=== PATIENT | male | born 1965 | race African-American/Black ===

== ENCOUNTER 2017-07-07 09:25 | Emergency (ER) | payer SELFPAY ==
[~2017-07-07] VITALS: Ht 177.8 cm; Wt 97.5 kg
[~2017-07-07 09:25] MED LIST: BENZ100C PO
--- NOTE | 2017-07-07 09:44 | PHYS DOC ---
Past Medical History Past Medical History: Hypertension Past Surgical History: No Surgical History Alcohol Use: Sober Drug Use: None Adult General Chief Complaint Chief Complaint: SORE THROAT HPI HPI Patient is a 51 year old male with history of hypertension who presents with a sore throat and body aches for 2 days. Patient denies any fever. Review of Systems Review of Systems Constitutional: Reports body aches. Denies fever or chills [] Eyes: Denies change in visual acuity, redness, or eye pain [] HENT: Reports sore throat. Denies nasal congestion Respiratory: Denies cough or shortness of breath [] Cardiovascular: No additional information not addressed in HPI [] GI: Denies abdominal pain, nausea, vomiting, bloody stools or diarrhea [] : Denies dysuria or hematuria [] Musculoskeletal: Denies back pain or joint pain [] Integument: Denies rash or skin lesions [] Neurologic: Denies headache, focal weakness or sensory changes [] All other systems were reviewed and found to be within normal limits, except as documented in this note. Allergies Allergies Allergies Coded Allergies Type Severity Reaction Last Updated Verified No Known Drug Allergies 02/05/15 No Physical Exam Physical Exam Constitutional: Well developed, well nourished, no acute distress, non-toxic appearance. [] HENT: Normocephalic, atraumatic, bilateral external ears normal, oropharynx moist, no oral exudates, nose normal. [] posterior pharynx is mildly erythematosus worse on the left upper side Eyes: PERRLA, EOMI, conjunctiva normal, no discharge. [] Neck: Normal range of motion, no tenderness, supple, no stridor. [] Cardiovascular:Heart rate regular rhythm, no murmur [] Lungs & Thorax: Bilateral breath sounds clear to auscultation [] Abdomen: Bowel sounds normal, soft, no tenderness, no masses, no pulsatile masses. [] Skin: Warm, dry, no erythema, no rash. [] Back: No tenderness, no CVA tenderness. [] Extremities: No tenderness, no cyanosis, no clubbing, ROM intact, no edema. [] Neurologic: Alert and oriented X 3, normal motor function, normal sensory function, no focal deficits noted. [] Psychologic: Affect normal, judgement normal, mood normal. [] Current Patient Data Vital Signs Vital Signs Date Time Temp Pulse Resp B/P (MAP) Pulse Ox O2 Delivery O2 Flow Rate FiO2 07/07/17 09:40 98.5 61 16 97 Room Air 98.5 Lab Values Laboratory Tests Test 07/07/17 09:40 07/07/17 10:00 Influenza Type A Antigen Negative (NEGATIVE) Influenza Type B Antigen Negative (NEGATIVE) Group A Streptococcus Rapid Positive (NEGATIVE) EKG EKG [] Radiology/Procedures Radiology/Procedures [] Course & Med Decision Making Course & Med Decision Making Pertinent Labs and Imaging studies reviewed. (See chart for details) Patient has a sore throat and body aches for 2 days. Negative influenza A or B. Positive rapid strep. Discharged with amoxicillin for 10 days and lidocaine viscous. Tylenol or Motrin for pain or fever. Saltwater gargles also recommended. Follow-up with primary care doctor in one week. Dragon Disclaimer Dragon Disclaimer This electronic medical record was generated, in whole or in part, using a voice recognition dictation system. Departure Departure Impression: Primary Impression: Strep pharyngitis Disposition: HOME, SELF-CARE Condition: STABLE Referrals: NO PCP (PCP) Follow-up with your doctor at [facility] [place] on Wednesday Patient Instructions: Strep Throat, Group A Streptococcus Additional Instructions: You tested positive for strep infection. Take the prescribed antibiotics until completed. Take Tylenol/ Motrin for pain or fever. Follow-up with your doctor in one week. Scripts Amoxicillin (AMOXICILLIN) 875 Mg Tablet 1 TAB PO BID, #20 TAB Prov: GWYN MCNAMARA APRN 07/07/17 GWYN MCNAMARA APRN Jul 07, 2017 09:44
[2017-07-07 10:09] LABS: OBC FLU VALID
[2017-07-07 10:23] LABS: NEGATIVE OBC STREP NEG; POSITIVE OBC STREP POS
[2017-07-07] MEDS ORDERED: AMOX875T PO (10:33)
[2017-07-07 10:43] VITALS: BP 152/88
== END 2017-07-07 11:12 | disposition home or self-care (01) ==
LOC: ER 09:25
DX: J02.0 Streptococcal pharyngitis (principal); I10 Essential (primary) hypertension
CPT/HCPCS: 87804; 87880; 99284

== ENCOUNTER 2017-09-03 08:47 | Emergency (ER) | payer OTHER ==
[2017-09-03] MEDS: IBUPROFEN 800 MG TABLET. PO (09:43)
== END 2017-09-03 10:05 | disposition home or self-care (01) ==
LOC: ER 08:47
DX: Z76.0 Encounter for issue of repeat prescription (principal); I10 Essential (primary) hypertension
CPT/HCPCS: 99283

== ENCOUNTER 2017-10-11 12:59 | Emergency (ER) | payer OTHER ==
[2017-10-11 14:52] LABS: INFLUENZA A PATIENT NEGATIVE (NEGATIVE); INFLUENZA B PATIENT NEGATIVE (NEGATIVE); OBC FLU VALID
== END 2017-10-11 15:08 | disposition home or self-care (01) ==
LOC: ER 12:59
DX: J32.1 Chronic frontal sinusitis (principal); I10 Essential (primary) hypertension
CPT/HCPCS: 87804; 87804-59; 99284

== ENCOUNTER 2018-02-22 17:38 | Emergency (ER) | payer OTHER | END 2018-02-22 19:05 | disposition home or self-care (01) | LOC: ER 19:05 | DX: M25.511 Pain in right shoulder (principal); M79.1 Myalgia; I10 Essential (primary) hypertension | CPT/HCPCS: 99281 ==

== ENCOUNTER 2018-04-04 18:24 | Emergency (ER) | payer MEDICARE, OTHER ==
[~2018-04-04] VITALS: Ht 177.8 cm; Wt 95.3 kg
[~2018-04-04 18:24] MED LIST changes: +AMOX1TAB61 PO; +AMOX875T PO
[2018-04-04 19:19] VITALS: BP 164/101
[2018-04-04] MEDS ORDERED: LIDOCAINE 1% PF 30 ML VIAL. INJ ONE (19:30)
[2018-04-04] MEDS ORDERED: TETANUS AND DIPHTHERIA TOX/PF 0.5 ML DISP.SYRIN. VAX IM ONE (20:00)
--- NOTE | 2018-04-04 20:32 | PHYS DOC ---
Past Medical History Past Medical History: Hypertension Past Surgical History: No Surgical History Alcohol Use: Sober Drug Use: None Adult General Chief Complaint Chief Complaint: LACERATION/AVULSION HPI HPI Patient is a 52 year old male who presents with laceration to the left thumb and left wrist pain. Patient reports he was carrying a window when it slipped from his hand, lacerating his left thumb and causing him to fall on his left wrist. He is unsure of his last tetanus. Bleeding is controlled at this time. Review of Systems Review of Systems Constitutional: Denies fever or chills [] Musculoskeletal: Left wrist pain Integument: Laceration to left thumb Neurologic: Denies focal weakness or sensory changes [] All other systems were reviewed and found to be within normal limits, except as documented in this note. Current Medications Current Medications Current Medications Medications (Trade) Dose Ordered Sig/Ike Start Time Stop Time Status Last Admin Dose Admin Lidocaine HCl (Xylocaine 1% Pf 30ml Vial) 20 ml 1X ONCE 04/04/18 19:30 04/04/18 19:31 DC 04/04/18 19:45 20 ML Tetanus/ Diphtheria Toxoids (Tenivac Syringe) 0.5 ml ONCE ONCE 04/04/18 20:00 04/04/18 20:01 DC 04/04/18 20:30 0.5 ML Allergies Allergies Allergies Coded Allergies Type Severity Reaction Last Updated Verified No Known Drug Allergies 02/05/15 No Physical Exam Physical Exam Constitutional: Well developed, well nourished, no acute distress, non-toxic appearance. [] HENT: Normocephalic, atraumatic Eyes: PERRLA, EOMI, conjunctiva normal, no discharge. [] Neck: Normal range of motion, no tenderness, supple, no stridor. [] Skin: Warm, dry, 1.5 cm laceration to the left thumb, bleeding controlled Extremities: Tenderness to palpation of the left wrist, limited range of motion due to pain, no swelling Neurologic: Alert and oriented X 3, normal motor function, normal sensory function, no focal deficits noted. [] Psychologic: Affect normal, judgement normal, mood normal. [] Current Patient Data Vital Signs Vital Signs Date Time Temp Pulse Resp B/P (MAP) Pulse Ox O2 Delivery O2 Flow Rate FiO2 04/04/18 19:19 98.5 68 12 164/101 (122) 97 Room Air 98.5 EKG EKG [] Radiology/Procedures Radiology/Procedures [] Course & Med Decision Making Course & Med Decision Making Pertinent Labs and Imaging studies reviewed. (See chart for details) [] Dragon Disclaimer Dragon Disclaimer This electronic medical record was generated, in whole or in part, using a voice recognition dictation system. Laceration/Wound Repair Laceration/Wound Repair : Wound Location: upper extremity (left thumb) Wound's Depth, Shape: superficial, flap Wound Length (cm): 1 Wound Explored: clean Betadine Prep?: No Anesthesia: 1% Lidocaine Volume Anesthetic (ccs): 2 Wound Repaired With: sutures Suture Size/Type: 5:0 Number of Sutures: 3 Layer Closure?: No Sterile Dressing Applied?: Yes Splint Applied?: No Sling Applied?: No Progress Patient tolerated without difficulty Departure Departure Impression: Primary Impression: Laceration Additional Impression: Left wrist sprain Disposition: 01 HOME, SELF-CARE Condition: GOOD Referrals: NO PCP (PCP) Patient Instructions: Laceration Care, Adult, Wrist Sprain with Rehab-SportsMed Problem Qualifiers Additional Impression: Left wrist sprain Encounter type: initial encounter Qualified Codes: S63.502A - Unspecified sprain of left wrist, initial encounter [facility]ON [facility] [employer] Apr 04, 2018 20:32
--- NOTE | 2018-04-04 21:57 | RAD ---
Indication: Left wrist pain after fall TECHNIQUE: 3 views of the left wrist COMPARISON: None FINDINGS: No acute fracture or dislocation. No soft tissue abnormality. No arthritic changes. IMPRESSION: No acute findings. Electronically signed by: Tushar Siddiqui DO (04/04/2018 9:53 PM) [facility]
== END 2018-04-04 20:43 | disposition home or self-care (01) ==
LOC: ER 18:24
DX: S61.012A Laceration without foreign body of left thumb without damage to nail, initial encounter (principal); S63.502A Unspecified sprain of left wrist, initial encounter; I10 Essential (primary) hypertension; Y93.89 Activity, other specified; W26.8XXA Contact with other sharp object(s), not elsewhere classified, initial encounter; Y92.89 Other specified places as the place of occurrence of the external cause; Y99.8 Other external cause status
CPT/HCPCS: 12001; 29125; 73110; 90471; 90714; 99284-25

== ENCOUNTER 2018-12-31 06:57 | Emergency (ER) | payer OTHER ==
[~2018-12-31] VITALS: Ht 177.8 cm; Wt 97.5 kg
[2018-12-31] MEDS ORDERED: CYCLOBENZAPRINE 10 MG TABLET. PO ONE (07:30)
[2018-12-31] MEDS ORDERED: HYDROcodone/APAP 5/325MG 1 TAB TABLET PO ONE (07:30)
--- NOTE | 2018-12-31 08:09 | RAD ---
Examination: 2 views of the left shoulder and 3 views of the lumbar spine HISTORY: History of fall Comparison: None available FINDINGS: The humerus head is within the glenoid. Mild joint space loss identified in the glenohumeral joint and The calculated joint. There is no acute fracture or dislocation identified. The lumbar vertebral body heights are maintained. Mild intervertebral disc height loss identified in the lumbar spine likely degeneration. Facets are well aligned. IMPRESSION: 1. No acute osseous findings. Electronically signed by: Javier Gracia MD (12/31/2018 8:06 AM) [facility]
--- NOTE | 2018-12-31 08:09 | RAD ---
Examination: 2 views of the left shoulder and 3 views of the lumbar spine HISTORY: History of fall Comparison: None available FINDINGS: The humerus head is within the glenoid. Mild joint space loss identified in the glenohumeral joint and The calculated joint. There is no acute fracture or dislocation identified. The lumbar vertebral body heights are maintained. Mild intervertebral disc height loss identified in the lumbar spine likely degeneration. Facets are well aligned. IMPRESSION: 1. No acute osseous findings. Electronically signed by: Javier Gracia MD (12/31/2018 8:06 AM) [facility]
[2018-12-31] MEDS ORDERED: cloNIDine HCL 0.1 MG TABLET PO ONE (08:30)
--- NOTE | 2018-12-31 08:31 | PHYS DOC ---
Past Medical History Past Medical History: Hypertension Past Surgical History: No Surgical History Alcohol Use: Sober Drug Use: None Adult General Chief Complaint Chief Complaint: MECHANICAL FALL HPI HPI Patient is a 53 year old male who presents with complaining of left shoulder and low back pain after a fall. Patient states he lost his balance and had a fall from several stairs at home yesterday with slipping down along the stairs without loss of consciousness. Patient complaining of pain in left shoulder and low back as a constant pain that getting worse with movement. Patient denies focal neuro deficit, fever and chills, nausea and vomiting. Patient rated his pain 8/10 and denies taking any pain medication at home. Review of Systems Review of Systems Constitutional: Denies fever or chills [] Eyes: Denies change in visual acuity, redness, or eye pain [] HENT: Denies nasal congestion or sore throat [] Respiratory: Denies cough or shortness of breath [] Cardiovascular: No additional information not addressed in HPI [] GI: Denies abdominal pain, nausea, vomiting, bloody stools or diarrhea [] : Denies dysuria or hematuria [] Musculoskeletal: Reports pain and joint pain Integument: Denies rash or skin lesions [] Neurologic: Denies headache, focal weakness or sensory changes [] Endocrine: Denies polyuria or polydipsia [] All other systems were reviewed and found to be within normal limits, except as documented in this note. Current Medications Current Medications Current Medications Medications (Trade) Dose Ordered Sig/Ike Start Time Stop Time Status Last Admin Dose Admin Acetaminophen/ Hydrocodone Bitart (Lortab 5/325) 1 tab 1X ONCE 12/31/18 07:30 12/31/18 07:32 DC 12/31/18 07:38 1 TAB Clonidine HCl (Catapres) 0.2 mg 1X ONCE 12/31/18 08:30 12/31/18 08:31 DC 12/31/18 08:40 0.2 MG Cyclobenzaprine HCl (Flexeril) 10 mg 1X ONCE 12/31/18 07:30 12/31/18 07:32 DC 12/31/18 07:37 10 MG Allergies Allergies Allergies Coded Allergies Type Severity Reaction Last Updated Verified No Known Drug Allergies 02/05/15 No Physical Exam Physical Exam Constitutional: Well developed, well nourished,mild distress, non-toxic appearance. [] HENT: Normocephalic, atraumatic. Eyes: PERRLA, EOMI, conjunctiva normal, no discharge. [] Neck: Normal range of motion, no tenderness, supple, no stridor. [] Cardiovascular:Heart rate regular rhythm, no murmur [] Lungs & Thorax: Bilateral breath sounds clear to auscultation [] Skin: Warm, dry, no erythema, no rash. [] Back: No midline tenderness, no sign of injury, no CVA tenderness. [] Extremities: No shoulder deformity ,no tenderness, no cyanosis, no clubbing, ROM intact, no edema. [] Neurologic: Alert and oriented X 3, normal motor function, normal sensory function, no focal deficits noted. [] Psychologic: Affect normal, judgement normal, mood normal. [] Current Patient Data Vital Signs Vital Signs Date Time Temp Pulse Resp B/P (MAP) Pulse Ox O2 Delivery O2 Flow Rate FiO2 12/31/18 09:14 59 14 98 12/31/18 08:40 199/123 12/31/18 08:38 Room Air 12/31/18 07:18 98.0 98.0 EKG EKG [] Radiology/Procedures Radiology/Procedures [facility] [address] [place], [place] [id number] IMAGING REPORT Signed PATIENT: TASHIA NEWMAN ACCOUNT: [id number] : 1965 LOCATION: ER AGE: 53 SEX: M EXAM STATUS: REG ER ORD. PHYSICIAN: ESME MICHEL MD REASON: fall PROCEDURE: LUMBAR SPINE 2-3V Examination: 2 views of the left shoulder and 3 views of the lumbar spine HISTORY: History of fall Comparison: None available FINDINGS: The humerus head is within the glenoid. Mild joint space loss identified in the glenohumeral joint and The calculated joint. There is no acute fracture or dislocation identified. The lumbar vertebral body heights are maintained. Mild intervertebral disc height loss identified in the lumbar spine likely degeneration. Facets are well aligned. IMPRESSION: 1. No acute osseous findings. Electronically signed by: Javier Gracia MD (12/31/2018 8:06 AM) [facility] DICTATED and SIGNED BY: JAVIER GRACIA MD DATE: 12/31/18805 [facility] [address] [place] [address] IMAGING REPORT Signed PATIENT: TASHIA NEWMAN ACCOUNT: [id number] : 1965 LOCATION: ER AGE: 53 SEX: M EXAM STATUS: REG ER ORD. PHYSICIAN: ESME MICHEL MD REASON: fall PROCEDURE: SHOULDER 2+V LEFT Examination: 2 views of the left shoulder and 3 views of the lumbar spine HISTORY: History of fall Comparison: None available FINDINGS: The humerus head is within the glenoid. Mild joint space loss identified in the glenohumeral joint and The calculated joint. There is no acute fracture or dislocation identified. The lumbar vertebral body heights are maintained. Mild intervertebral disc height loss identified in the lumbar spine likely degeneration. Facets are well aligned. IMPRESSION: 1. No acute osseous findings. Electronically signed by: Javier Gracia MD (12/31/2018 8:06 AM) [facility] DICTATED and SIGNED BY: JAVIER GRACIA MD DATE: 12/31/18805 Course & Med Decision Making Course & Med Decision Making Pertinent Imaging studies reviewed. (See chart for details) Evaluation of patient in ER showed 53-year-old male patient with a fall yesterday and injury to lower back and shoulder without abnormal finding exam or x-ray. Patient treated with Osprey and Flexeril and felt better in ER. Patient had blood pressure of 130/123 at arrival to ER and states he does not take his blood pressure medication for months because he ran out of the medication and because of lack of insurance was not able to take medication. Patient treated with clonidine 0.2 mg by mouth with improvement of blood pressure. Prescription for lisinopril was given. I've spoken with the patient and/or caregivers. I've explained the patient's condition, diagnosis and treatment plan based on information available to me at this time. I've answered the patient's and/or caregivers questions and addressed any concerns. The patient and/or caregivers have a good understanding the patient's diagnosis, condition and treatment plan as can be expected at this point. Vital signs have been stabilized. The patient's condition is stable for discharge from the emergency department. The patient will pursue further outpatient evaluation with her primary care provider or other designated consulting physician as outlined in the discharge instructions. Patient and/or caregivers are agreeable to this plan of care and f ollow-up instructions have been explained in detail. The patient and/or caregivers have received these instructions in written format and expressed understanding of these discharge instructions. The patient and her caregivers are aware that if any significant change in condition or worsening of symptoms should prompt him to immediately return to this of the closest emergency depart ment. If an emergent department is not readily available I would encourage him to call 911. Dragon Disclaimer Dragon Disclaimer This electronic medical record was generated, in whole or in part, using a voice recognition dictation system. Departure Departure Impression: Primary Impression: Acute lumbosacral myofascial strain Additional Impressions: Strain of shoulder, left Fall down stairs Hypertensive urgency Disposition: HOME, SELF-CARE (ERASED) Condition: IMPROVED Referrals: NO PCP (PCP) Patient Instructions: Fall Prevention and Home Safety, How to Take Your Blood Pressure, [id number], Lumbosacral Strain, Managing Your High Blood Pressure, Shoulder Sprain Additional Instructions: Apply ice on the affected area Follow-up with your primary care physician in 3-5 days Return to ER if not getting better Scripts Lisinopril (LISINOPRIL) 20 Mg Tablet 1 TAB PO DAILY, #30 TAB 0 Refills Prov: ESME MICHEL MD 12/31/18 Tramadol Hcl (ULTRAM) 50 Mg Tablet 50 MG PO Q6HRS PRN for PAIN, #14 TAB 0 Refills Prov: ESME MICHEL MD 12/31/18 Naproxen (NAPROSYN) 500 Mg Tablet 1 TAB PO BID for pain, #20 TAB Prov: ESME MICHEL MD 12/31/18 Cyclobenzaprine Hcl (CYCLOBENZAPRINE HCL) 10 Mg Tablet 1 TAB PO TID for muscle pain, #30 TAB Prov: ESME MICHEL MD 12/31/18 Problem Qualifiers Primary Impression: Acute lumbosacral myofascial strain Encounter type: initial encounter Qualified Codes: S39.012A - Strain of muscle, fascia and tendon of lower back, initial encounter Additional Impressions: Strain of shoulder, left Encounter type: initial encounter Qualified Codes: S46.912A - Strain of unspecified muscle, fascia and tendon at shoulder and upper arm level, left arm, initial encounter Fall down stairs Encounter type: initial encounter Qualified Codes: W10.8XXA - Fall (on) (from) other stairs and steps, initial encounter ESME MICHEL MD December 31, 2018 08:31
[2018-12-31] MEDS ORDERED: TRAM-48 PO (08:58)
[2018-12-31] MEDS ORDERED: LISI-334 PO (08:58)
[2018-12-31] MEDS ORDERED: NAPR-683 PO (08:58)
[2018-12-31] MEDS ORDERED: CYCL10TA2 PO (08:58)
[2018-12-31 09:14] VITALS: BP 179/102
== END 2018-12-31 09:20 | disposition home or self-care (01) ==
LOC: ER 06:57
DX: S39.012A Strain of muscle, fascia and tendon of lower back, initial encounter (principal); S46.812A Strain of other muscles, fascia and tendons at shoulder and upper arm level, left arm, initial encounter; I16.0 Hypertensive urgency; W10.8XXA Fall (on) (from) other stairs and steps, initial encounter; Y93.89 Activity, other specified; Y92.89 Other specified places as the place of occurrence of the external cause; Y99.8 Other external cause status
CPT/HCPCS: 72100; 73030; 99284

== ENCOUNTER 2019-05-22 09:02 | Emergency (ER) | payer SELFPAY ==
[~2019-05-22] VITALS: Ht 177.8 cm; Wt 99.8 kg
[~2019-05-22 09:02] MED LIST changes: +CYCL10TA2 PO; +LISI-334 PO; +NAPR-683 PO; +TRAM-48 PO
[2019-05-22 09:10] VITALS: BP 196/116
--- NOTE | 2019-05-22 09:31 | PHYS DOC ---
Past Medical History Past Medical History: Hypertension Past Surgical History: No Surgical History Alcohol Use: Sober Drug Use: None Adult General Chief Complaint Chief Complaint: SORE THROAT HPI HPI Patient is a 53 year old AA male who presents to the ER with complaints of a sore throat, frequent throat clearing, and nasal congestion for the last 5 days. He denies any difficulty swallowing, shortness of breath, headache, wheezing, fever, rash, nausea, vomiting, diarrhea, abdominal pain, chest pain, numbness, tingling, weakness, or neck pain. Pt states he has a hx of hypertension but has been out of his meds for the last week. Pt is unsure of what the name of his medication is, it was prescribed by [facility], he has been prescribed blood pressure meds here before that also helped to control his hypertension. Pt currently rates his pain a 7/10 on the pain scale there are no alleviating factors the pain increases when swallowing. Review of Systems Review of Systems Constitutional: Denies fever or chills [] Eyes: Denies change in visual acuity, redness, or eye pain [] HENT: Denies ear pain or runny nose, see HPI Respiratory: Denies cough or shortness of breath [] Cardiovascular: No additional information not addressed in HPI [] GI: Denies abdominal pain, nausea, vomiting, or diarrhea [] : Denies dysuria or hematuria [] Musculoskeletal: Denies back pain or joint pain [] Integument: Denies rash or skin lesions [] Neurologic: Denies headache, focal weakness or sensory changes [] Complete systems were reviewed and found to be within normal limits, except as documented in this note. Allergies Allergies Allergies Coded Allergies Type Severity Reaction Last Updated Verified No Known Drug Allergies 02/05/15 No Physical Exam Physical Exam Constitutional: Well developed, well nourished, no acute distress, non-toxic appearance. [] HENT: Normocephalic, atraumatic, bilateral external ears normal, mild erythema of posterior pharynx, 1+ edema of B tonsils, oropharynx moist, no oral exudates, nose normal, odor of strep noted on breath. [] Eyes: PERRLA, EOMI, conjunctiva normal, no discharge. [] Neck: Normal range of motion, no tenderness, supple, no stridor. [] Cardiovascular:Heart rate regular rhythm, no murmur [] Lungs & Thorax: Bilateral breath sounds clear to auscultation [] Skin: Warm, dry, no erythema, no rash. [] Back: No tenderness, Extremities: No t cyanosis, ROM intact, no edema. [] Neurologic: Alert and oriented X 3, no focal deficits noted. [] Psychologic: Affect normal, judgement normal, mood normal. [] Current Patient Data Vital Signs Vital Signs Date Time Temp Pulse Resp B/P (MAP) Pulse Ox O2 Delivery O2 Flow Rate FiO2 05/22/19 09:10 98.2 77 19 196/116 (142) 98 Room Air 98.2 EKG EKG [] Radiology/Procedures Radiology/Procedures [] Course & Med Decision Making Course & Med Decision Making Pertinent Labs and Imaging studies reviewed. (See chart for details) [] Dragon Disclaimer Dragon Disclaimer This electronic medical record was generated, in whole or in part, using a voice recognition dictation system. Departure Departure Impression: Primary Impression: Strep pharyngitis Additional Impression: HTN (hypertension) Disposition: HOME, SELF-CARE Condition: STABLE Referrals: NO PCP (PCP) Patient Instructions: Hypertension, [id number], Strep Throat, [id number] Additional Instructions: Fill prescriptions and use as directed. Recommend warm salt water gargles as needed for relief of discomfort. Alternate Tylenol and ibuprofen as needed for fever/pain. Discard your toothbrush tomorrow and begin using a new toothbrush. Follow-up with primary care doctor at [facility] this week for evaluation of your hypertension. Return to the ER if symptoms worsen. Scripts Amoxicillin (AMOXICILLIN) 500 Mg Capsule 1 CAP PO BID, #20 CAP 0 Refills Prov: CM HAYS APRN 05/22/19 Lisinopril (LISINOPRIL) 20 Mg Tablet 1 TAB PO DAILY for 30 Days, #30 TAB 0 Refills Prov: CM HAYS APRN 05/22/19 Problem Qualifiers Additional Impression: HTN (hypertension) Hypertension type: essential hypertension Qualified Codes: I10 - Essential (primary) hypertension CM HAYS APRN May 22, 2019 09:31
[2019-05-22] MEDS ORDERED: LISI-334 PO (09:49)
[2019-05-22] MEDS ORDERED: AMOX500C PO (09:49)
== END 2019-05-22 10:10 | disposition home or self-care (01) ==
LOC: ER 09:02
DX: J02.0 Streptococcal pharyngitis (principal); B95.5 Unspecified streptococcus as the cause of diseases classified elsewhere; I10 Essential (primary) hypertension
CPT/HCPCS: 87880; 99283

== ENCOUNTER 2019-08-20 14:19 | Emergency (ER) | payer SELFPAY ==
[~2019-08-20] VITALS: Ht 177.8 cm; Wt 99.8 kg
[~2019-08-20 14:19] MED LIST changes: +AMOX500C PO
[2019-08-20 14:51] LABS: BASO % 0 % (0-3); EOS # 0.1 x10^3/uL (0.0-0.7); EOS % 2 % (0-3); HEMATOCRIT 48.5 % (39.0-53.0); HEMOGLOBIN 16.2 g/dL (13.0-17.5); LYMPH # 3.3 x10^3/uL (1.0-4.8); LYMPH % 52 % (24-48); MEAN CORPUSCULAR HEMOGLOBIN 29 pg (25-35); MEAN CORPUSCULAR HGB CONC 33 g/dL (31-37); MEAN CORPUSCULAR VOLUME 88 fL (79-100); MONO # 0.4 x10^3/uL (0.0-1.1); MONO % 7 % (0-9); NEUT # 2.4 x10^3/uL (1.8-7.7); NEUT % 39 % (31-73); PLATELET COUNT 226 x10^3/uL (140-400); RED CELL DISTRIBUTION WIDTH 14.7 % (11.5-14.5); WHITE BLOOD COUNT 6.3 x10^3/uL (4.0-11.0)
--- NOTE | 2019-08-20 14:57 | PHYS DOC ---
Past Medical History Past Medical History: Hypertension Past Surgical History: No Surgical History Alcohol Use: Sober Drug Use: None Adult General Chief Complaint Chief Complaint: CHEST PAIN-CARDIAC NATURE HPI HPI Patient is a 53 year old with history of hypertension who presents with complaint of chest pain. Patient states he woke up yesterday at 5 AM because of left lower chest pain as a stabbing and sharp pain with radiation to his back and associated with diaphoresis, shortness of breath, dizziness, palpitation. Patient rated his pain 10 over 10 and stated the pain resolved after 15 minutes with rest. Patient states he woke up 1330 today with the same pain that getting worse with movement of his left arm. Patient states his left hand had edema and numbness yesterday and he thought he slept wrong on his arm. Review of Systems Review of Systems Constitutional: Denies fever or chills [] Eyes: Denies change in visual acuity, redness, or eye pain [] HENT: Denies nasal congestion or sore throat [] Respiratory: Denies cough or shortness of breath [] Cardiovascular: No additional information not addressed in HPI [] GI: Denies abdominal pain, nausea, vomiting, bloody stools or diarrhea [] : Denies dysuria or hematuria [] Musculoskeletal: Denies back pain or joint pain [] Integument: Denies rash or skin lesions [] Neurologic: Denies headache, focal weakness or sensory changes [] Endocrine: Denies polyuria or polydipsia [] All other systems were reviewed and found to be within normal limits, except as documented in this note. Current Medications Current Medications Current Medications Medications (Trade) Dose Ordered Sig/[facility] Start Time Stop Time Status Last Admin Dose Admin Aspirin (Children'S Aspirin) 324 mg 1X ONCE 08/20/19 15:15 08/20/19 15:16 DC 08/20/19 14:56 324 MG Sodium Chloride 1,000 ml @ 1,000 mls/hr 1X ONCE 08/20/19 15:30 08/20/19 16:29 08/20/19 15:47 1,000 MLS/HR Allergies Allergies Allergies Coded Allergies Type Severity Reaction Last Updated Verified No Known Drug Allergies 02/05/15 No Physical Exam Physical Exam Constitutional: Well developed, well nourished, no acute distress, non-toxic appearance. [] HENT: Normocephalic, atraumatic, bilateral external ears normal, oropharynx moist, no oral exudates, nose normal. [] Eyes: PERRLA, EOMI, conjunctiva normal, no discharge. [] Neck: Normal range of motion, no tenderness, supple, no stridor. [] Cardiovascular:Heart rate regular rhythm, no murmur [] Lungs & Thorax: Bilateral breath sounds clear to auscultation , reproducible chest wall pain[] Abdomen: Bowel sounds normal, soft, no tenderness, no masses, no pulsatile masses. [] Skin: Warm, dry, no erythema, no rash. [] Back: No tenderness, no CVA tenderness. [] Extremities: No tenderness, no cyanosis, no clubbing, ROM intact, no edema. [] Neurologic: Alert and oriented X 3, normal motor function, normal sensory function, no focal deficits noted. [] Psychologic: Affect normal, judgement normal, mood normal. [] Current Patient Data Vital Signs Vital Signs Date Time Temp Pulse Resp B/P (MAP) Pulse Ox O2 Delivery O2 Flow Rate FiO2 08/20/19 14:28 97.9 54 14 153/87 (109) 98 Room Air 97.9 Lab Values Laboratory Tests Test 08/20/19 14:28 White Blood Count 6.3 x10^3/uL (4.0-11.0) Red Blood Count 5.50 x10^6/uL (4.30-5.70) Hemoglobin 16.2 g/dL (13.0-17.5) Hematocrit 48.5 % (39.0-53.0) Mean Corpuscular Volume 88 fL (79-100) Mean Corpuscular Hemoglobin 29 pg (25-35) Mean Corpuscular Hemoglobin Concent 33 g/dL (31-37) Red Cell Distribution Width 14.7 % (11.5-14.5) H Platelet Count 226 x10^3/uL (140-400) Neutrophils (%) (Auto) 39 % (31-73) Lymphocytes (%) (Auto) 52 % (24-48) H Monocytes (%) (Auto) 7 % (0-9) Eosinophils (%) (Auto) 2 % (0-3) Basophils (%) (Auto) 0 % (0-3) Neutrophils # (Auto) 2.4 x10^3/uL (1.8-7.7) Lymphocytes # (Auto) 3.3 x10^3/uL (1.0-4.8) Monocytes # (Auto) 0.4 x10^3/uL (0.0-1.1) Eosinophils # (Auto) 0.1 x10^3/uL (0.0-0.7) Basophils # (Auto) 0.0 x10^3/uL (0.0-0.2) Prothrombin Time 12.4 SEC (11.7-14.0) Prothrombin Time INR 1.0 (0.8-1.1) Sodium Level 141 mmol/L (136-145) Potassium Level 4.2 mmol/L (3.5-5.1) Chloride Level 104 mmol/L (98-107) Carbon Dioxide Level 31 mmol/L (21-32) Anion Gap 6 (6-14) Blood Urea Nitrogen 15 mg/dL (8-26) Creatinine 1.4 mg/dL (0.7-1.3) H Estimated GFR (Cockcroft-Gault) 63.9 BUN/Creatinine Ratio 11 (6-20) Glucose Level 93 mg/dL (70-99) Calcium Level 8.8 mg/dL (8.5-10.1) Magnesium Level 2.3 mg/dL (1.8-2.4) Total Bilirubin 0.7 mg/dL (0.2-1.0) Aspartate Amino Transferase (AST) 23 U/L (15-37) Alanine Aminotransferase (ALT) 23 U/L (16-63) Alkaline Phosphatase 65 U/L (46-116) Creatine Kinase 675 U/L (39-308) H Troponin I Quantitative < 0.017 ng/mL (0.000-0.055) YP-Bhl-M-Type Natriuretic Peptide 182 pg/mL (0-124) H Total Protein 7.9 g/dL (6.4-8.2) Albumin 3.8 g/dL (3.4-5.0) Albumin/Globulin Ratio 0.9 (1.0-1.7) L Lipase 152 U/L (73-393) Laboratory Tests 08/20/19 14:28 Laboratory Tests 08/20/19 14:28 EKG EKG EKG interpreted by me. EKG at 1426 showed sinus bradycardia at rate of 59, PVCs, no acute ST and T-wave elevation. Radiology/Procedures Radiology/Procedures [][facility] [address] [place], [place] [id number] IMAGING REPORT Signed PATIENT: TASHIA NEWMAN ACCOUNT: [id number] : 1965 LOCATION: ER AGE: 53 SEX: M EXAM STATUS: PRE ER ORD. PHYSICIAN: ESME MICHEL MD REASON: chest pain PROCEDURE: CHEST PA & LATERAL EXAM: Chest, 2 views. HISTORY: Chest pain. COMPARISON: 06/05/2016 FINDINGS: 2 views of the chest are obtained. There is no infiltrate, pleural effusion or pneumothorax. There is a stable prominent cardiac silhouette. There are calcified granulomas. IMPRESSION: No acute pulmonary finding. Electronically signed by: Jenni Vo MD (08/20/2019 3:22 PM) [facility] [place] DICTATED and SIGNED BY: JENNI VO MD DATE: 08/20/19 1522 Course & Med Decision Making Course & Med Decision Making Pertinent Labs and Imaging studies reviewed. (See chart for details) Evaluation of patient in ER showed 53-year-old male patient with heart score of 4 with complaining of 2 episodes of chest pain since yesterday. Patient had heavy physical job and labs showed elevation of CPK and currently. Patient did not have chest pain in ER but had reproducible chest wall pain. Patient treated with IV fluid and was advised to increase fluid intake. I've spoken with the patient and/or caregivers. I've explained the patient's condition, diagnosis and treatment plan based on information available to me at this time. I've answered the patient's and/or caregivers questions and addressed any concerns. The patient and/or caregivers have a good understanding the patient's diagnosis, condition and treatment plan as can be expected at this point. Vital signs have been stabilized. The patient's condition is stable for discharge from the emergency department. The patient will pursue further outpatient evaluation with her primary care provider or other designated consulting physician as outlined in the discharge instructions. Patient and/or caregivers are agreeable to this plan of care and follow-up instructions have been explained in detail. The patient and/or ca regivers have received these instructions in written format and expressed understanding of these discharge instructions. The patient and her caregivers are aware that if any significant change in condition or worsening of symptoms should prompt him to immediately return to this of the closest emergency department. If an emergent department is not readily available I would encourage him to call 911. [place] Disclaimer Dragon Disclaimer This electronic medical record was generated, in whole or in part, using a voice recognition dictation system. Departure Departure Impression: Primary Impression: Rhabdomyolysis Additional Impressions: Chest wall pain Renal insufficiency Disposition: HOME, SELF-CARE (@1602) Condition: IMPROVED Referrals: NO PCP (PCP) Patient Instructions: Chest Wall Pain, Rhabdomyolysis Additional Instructions: Drink plenty of liquids Follow-up with your primary care physician in 2-3 days Return to ER if not getting better The HEART Score for CP Pts HEART Score for Chest Pain: HEART Score for Chest Pain Response (Comments) Value History Moderately Suspicious 1 ECG Nonspecific Repolarizatio 1 Age >45 - < 65 1 Risk Factors 1 or 2 Risk Factors 1 Troponin < Normal Limit 0 Total 4 Risk Factors: Risk Factors: DM, Current or recent (<one month) smoker, HTN, HLP, family history of CAD, obesity. Risk Scores: Score 0 - 3: 2.5% MACE over next 6 weeks - Discharge Home Score 4 - 6: 20.3% MACE over next 6 weeks - Admit for Clinical Observation Score 7 - 10: 72.7% MACE over next 6 weeks - Early Invasive Strategies Problem Qualifiers Primary Impression: Rhabdomyolysis Rhabdomyolysis type: non-traumatic Qualified Codes: M62.82 - Rhabdomyolysis ESME MICHEL MD Aug 20, 2019 14:57
[2019-08-20 14:58] LABS: PROTHROMBIN TIME PATIENT 12.4 SEC (11.7-14.0)
[2019-08-20 15:07] LABS: CALCIUM 8.8 mg/dL (8.5-10.1); CREATININE 1.4 mg/dL (0.7-1.3); GFR 63.9; POTASSIUM 4.2 mmol/L (3.5-5.1)
[2019-08-20 15:15] LABS: ALBUMIN 3.8 g/dL (3.4-5.0); ALBUMIN/GLOBULIN RATIO 0.9 (1.0-1.7); MAGNESIUM 2.3 mg/dL (1.8-2.4); TOTAL BILIRUBIN 0.7 mg/dL (0.2-1.0); TOTAL PROTEIN 7.9 g/dL (6.4-8.2)
[2019-08-20] MEDS ORDERED: ASPIRIN CHEWABLE 81 MG TABLET. PO ONE (15:15)
--- NOTE | 2019-08-20 15:25 | RAD ---
EXAM: Chest, 2 views. HISTORY: Chest pain. COMPARISON: 06/05/2016 FINDINGS: 2 views of the chest are obtained. There is no infiltrate, pleural effusion or pneumothorax. There is a stable prominent cardiac silhouette. There are calcified granulomas. IMPRESSION: No acute pulmonary finding. Electronically signed by: Jenni Sim MD (08/20/2019 3:22 PM) [facility] [place]
[2019-08-20] MEDS ORDERED: IV NORMAL SALINE 1000ML BAG 1,000 ML IV ONE (15:30)
[2019-08-20 16:24] VITALS: BP 151/92
--- NOTE | 2019-08-21 08:45 | EKG ---
[facility] [address] [place] [address] Test Date: 2019-08-20 Test Time: 14:26:55 Pat Name: TASHIA NEWMAN Department: Room: Gender: Education Liaison: : 1965 Requested By: ESME MICHEL Order Number: [id number] Reading MD: Measurements Intervals [place] Rate: 58 P: 31 CA: 178 QRS: 10 QRSD: 96 T: 39 QT: 404 QTc: 400 Interpretive Statements SINUS RHYTHM VENTRICULAR PREMATURE COMPLEX(ES) ABNORMAL ECG No previous ECG available for comparison
== END 2019-08-20 16:32 | disposition home or self-care (01) ==
LOC: ER 14:19
DX: M62.82 Rhabdomyolysis (principal); R07.89 Other chest pain; N28.9 Disorder of kidney and ureter, unspecified; R42 Dizziness and giddiness; R60.9 Edema, unspecified; R00.2 Palpitations; R61 Generalized hyperhidrosis; I10 Essential (primary) hypertension; Z79.82 Long term (current) use of aspirin
CPT/HCPCS: 36415; 71046; 80053; 82550; 83690; 83735; 83880; 84484; 85025; 85610; 93005; 96360; 99285; J7030

== ENCOUNTER 2019-09-09 12:49 | Emergency (ER) | payer SELFPAY ==
[~2019-09-09] VITALS: Ht 177.8 cm; Wt 102.0 kg
[2019-09-09] MEDS ORDERED: IV NORMAL SALINE 1000ML BAG 1,000 ML IV SCH (13:37)
[2019-09-09 13:56] LABS: BILIRUBIN,URINE NEGATIVE (NEG); CLARITY,URINE CLEAR; COLOR,URINE YELLOW; NITRITE,URINE NEGATIVE (NEG); PH,URINE 5.5; PROTEIN,URINE NEGATIVE (NEG-TRACE); UROBILINOGEN,URINE 0.2 mg/dL (0.2 mg/dL)
[2019-09-09 14:03] LABS: BARBITURATES NEG (NEG); BENZODIAZEPINES NEG (NEG); CANNABINOIDS NEG (NEG); COCAINE NEG (NEG); METHADONE NEG (NEG); OPIATES NEG (NEG); PHENCYCLIDINE NEG (NEG)
[2019-09-09 14:04] LABS: AMPHETAMINE/METHAMPHETAMINE NEG (NEG)
--- NOTE | 2019-09-09 14:04 | PHYS DOC ---
Past Medical History Past Medical History: Hypertension Past Surgical History: No Surgical History Alcohol Use: Sober Drug Use: None Adult General Chief Complaint Chief Complaint: ABDOMINAL PAIN HPI HPI Patient is a 54 year old male with history of hypertension who presents with complaints of abdominal pain. Patient complaining of intermittent episodes of abdominal pain that started from suprapubic area and radiated to umbilical area for the last 4 days as a sharp pain that last for a few seconds and repeated every few minutes. Patient denies nausea, vomiting, diarrhea and constipation, urinary symptoms, fever and chills, history of the same pain. Patient complaining of anorexia. Patient states he missed his job since his pain was started and needs release to work. Review of Systems Review of Systems Constitutional: Denies fever or chills [] Eyes: Denies change in visual acuity, redness, or eye pain [] HENT: Denies nasal congestion or sore throat [] Respiratory: Denies cough or shortness of breath [] Cardiovascular: No additional information not addressed in HPI [] GI: Reports abdominal pain, denies nausea, vomiting, bloody stools or diarrhea [] : Denies dysuria or hematuria [] Musculoskeletal: Denies back pain or joint pain [] Integument: Denies rash or skin lesions [] Neurologic: Denies headache, focal weakness or sensory changes [] Endocrine: Denies polyuria or polydipsia [] All other systems were reviewed and found to be within normal limits, except as documented in this note. Current Medications Current Medications Current Medications Medications (Trade) Dose Ordered Sig/Ike Start Time Stop Time Status Last Admin Dose Admin Sodium Chloride 1,000 ml @ 1,000 mls/hr Q1H 09/09/19 13:37 09/09/19 14:36 DC 09/09/19 14:09 1,000 MLS/HR Allergies Allergies Allergies Coded Allergies Type Severity Reaction Last Updated Verified No Known Drug Allergies 02/05/15 No Physical Exam Physical Exam Constitutional: Well developed, well nourished, mild distress, non-toxic appearance. [] HENT: Normocephalic, atraumatic. Eyes: PERRLA, EOMI, conjunctiva normal, no discharge. [] Neck: Normal range of motion, no tenderness, supple, no stridor. [] Cardiovascular:Heart rate regular rhythm, no murmur [] Lungs & Thorax: Bilateral breath sounds clear to auscultation [] Abdomen: Bowel sounds normal, soft, no tenderness, no masses, no pulsatile masses. [] Skin: Warm, dry, no erythema, no rash. [] Back: No tenderness, no CVA tenderness. [] Extremities: No tenderness, no cyanosis, no clubbing, ROM intact, no edema. [] Neurologic: Alert and oriented X 3, no focal deficits noted. [] Psychologic: Affect anxious, judgement normal, mood normal. [] Current Patient Data Vital Signs Vital Signs Date Time Temp Pulse Resp B/P (MAP) Pulse Ox O2 Delivery O2 Flow Rate FiO2 09/09/19 14:54 67 159/87 (111) 98 Room Air 09/09/19 14:21 18 09/09/19 13:10 98.1 98.1 Lab Values Laboratory Tests Test 09/09/19 13:20 09/09/19 13:55 Urine Collection Type Unknown Urine Color Yellow Urine Clarity Clear Urine pH 5.5 Urine Specific Noble 1.020 Urine Protein Negative mg/dL (NEG-TRACE) Urine Glucose (UA) Negative mg/dL (NEG) Urine Ketones (Stick) Negative mg/dL (NEG) Urine Blood Negative (NEG) Urine Nitrite Negative (NEG) Urine Bilirubin Negative (NEG) Urine Urobilinogen Dipstick 0.2 mg/dL (0.2 mg/dL) Urine Leukocyte Esterase Negative (NEG) Urine RBC 0 /HPF (0-2) Urine WBC Rare /HPF (0-4) Urine Bacteria 0 /HPF (0-FEW) Urine Opiates Screen Neg (NEG) Urine Methadone Screen Neg (NEG) Urine Barbiturates Neg (NEG) Urine Phencyclidine Screen Neg (NEG) Urine Amphetamine/Methamphetamine Neg (NEG) Urine Benzodiazepines Screen Neg (NEG) Urine Cocaine Screen Neg (NEG) Urine Cannabinoids Screen Neg (NEG) Urine Ethyl Alcohol Neg (NEG) White Blood Count 6.9 x10^3/uL (4.0-11.0) Red Blood Count 5.11 x10^6/uL (4.30-5.70) Hemoglobin 15.3 g/dL (13.0-17.5) Hematocrit 45.5 % (39.0-53.0) Mean Corpuscular Volume 89 fL (79-100) Mean Corpuscular Hemoglobin 30 pg (25-35) Mean Corpuscular Hemoglobin Concent 34 g/dL (31-37) Red Cell Distribution Width 14.6 % (11.5-14.5) H Platelet Count 170 x10^3/uL (140-400) Neutrophils (%) (Auto) 52 % (31-73) Lymphocytes (%) (Auto) 36 % (24-48) Monocytes (%) (Auto) 10 % (0-9) H Eosinophils (%) (Auto) 2 % (0-3) Basophils (%) (Auto) 0 % (0-3) Neutrophils # (Auto) 3.6 x10^3/uL (1.8-7.7) Lymphocytes # (Auto) 2.5 x10^3/uL (1.0-4.8) Monocytes # (Auto) 0.7 x10^3/uL (0.0-1.1) Eosinophils # (Auto) 0.1 x10^3/uL (0.0-0.7) Basophils # (Auto) 0.0 x10^3/uL (0.0-0.2) Sodium Level 141 mmol/L (136-145) Potassium Level 4.3 mmol/L (3.5-5.1) Chloride Level 107 mmol/L (98-107) Carbon Dioxide Level 28 mmol/L (21-32) Anion Gap 6 (6-14) Blood Urea Nitrogen 18 mg/dL (8-26) Creatinine 1.6 mg/dL (0.7-1.3) H Estimated GFR (Cockcroft-Gault) 54.6 BUN/Creatinine Ratio 11 (6-20) Glucose Level 85 mg/dL (70-99) Calcium Level 7.9 mg/dL (8.5-10.1) L Total Bilirubin 0.6 mg/dL (0.2-1.0) Aspartate Amino Transferase (AST) 19 U/L (15-37) Alanine Aminotransferase (ALT) 17 U/L (16-63) Alkaline Phosphatase 48 U/L (46-116) Total Protein 6.2 g/dL (6.4-8.2) L Albumin 3.1 g/dL (3.4-5.0) L Albumin/Globulin Ratio 1.0 (1.0-1.7) Lipase 119 U/L (73-393) Laboratory Tests 09/09/19 13:55 Laboratory Tests 09/09/19 13:55 EKG EKG [] Radiology/Procedures Radiology/Procedures [facility] [address] [place] [address] IMAGING REPORT Signed PATIENT: TASHIA NEWMAN ACCOUNT: [id number] : 1965 LOCATION: ER AGE: 54 SEX: M EXAM STATUS: REG ER ORD. PHYSICIAN: ESME MICHEL MD REASON: cramping abdominal pain 4 days PROCEDURE: CT ABDOMEN PELVIS WO CONTRAST CT Abdomen and Pelvis without contrast History: Crampy abdominal pain for 4 days Technique: Noncontrast CT imaging was performed of the abdomen and pelvis. Multiplanar images are reviewed. Exposure: One or more of the following individualized dose reduction techniques were utilized for this examination: 1. Automated exposure control 2. Adjustment of the mA and/or kV according to patient size 3. Use of iterative reconstruction technique. Comparison: September 11, 2009 Findings: There are trace dependent pleural effusions at the lung bases bilaterally. There are 2 new hypodense foci of the lateral left lobe of the liver, largest about 1.4 cm and the other about 0.9 cm there is also new small focus of hypodensity of the right lobe of the liver about 0.5 cm. Density characteristics are suggestive of cysts, 8 Hounsfield units of the dominant focus of the left lobe. There is no adrenal nodularity. Gallbladder is present without obvious intraluminal abnormality by CT. No obvious focal abnormality is identified of the spleen or pancreas allowing for noncontrast technique. There is no hydronephrosis or calculus of either kidney. No ureteral calculus is identified on either side. There is increased fat in the inguinal canals right greater than left without internal bowel. Normal caliber appendix is visualized without adjacent inflammatory-type change. Accurate evaluation of bowel is limited without oral contrast. Bowel is not significantly dilated. There is no free fluid or free air. There is vacuum disc disease at L5-S1. There is very mild grade 1 anterior spondylolisthesis at L4-5 at which there is facet degenerative change. There is degree of narrowing of the far left lateral recess at L4-5 from posteriorly by facet. There is umbilical fascial defect with segment of nondilated small bowel coursing into this region. Impression: 1. There is no urolithiasis or hydronephrosis. There is no CT evidence of acute appendicitis. 2. There are trace dependent pleural effusions at the lung bases bilaterally. 3. There are a few small hypodense foci of the liver which are new since the previous 2009 exam although density characteristics more suggestive of cysts. 4. There is L5-S1 degenerative disc disease, grade 1 anterior spondylolisthesis at L4-5 at which there is facet degenerative change, and degree of narrowing of the posterior left L4-5 lateral recess. 5. There is small bowel containing umbilical hernia, also some increased fat in the inguinal canals greater on the right, no internal bowel. Electronically signed by: Johnnie Mai MD (09/09/2019 2:04 PM) [facility] DICTATED and SIGNED BY: JOHNNIE MAI MD DATE: 09/09/19 1404 Course & Med Decision Making Course & Med Decision Making Pertinent Labs and Imaging studies reviewed. (See chart for details) Evaluation of patient in ER showed 54-year-old male patient with complaining of cramping abdominal pain for several days. Patient had unremarkable physical exam, CBC and CMP and UA except from chronic mild elevation of creatinine, CT abdomen and pelvis. Patient needed work excuse for 3 days and return to work area patient was advised to follow-up with his primary care physician and take liquid diet for the next 24 hours. I've spoken with the patient and/or caregivers. I've explained the patient's condition, diagnosis and treatment plan based on information available to me at this time. I've answered the patient's and/or caregivers questions and addressed any concerns. The patient and/or caregivers have a good understanding the patient's diagnosis, condition and treatment plan as can be expected at this point. Vital signs have been stabilized. The patient's condition is stable for discharge from the emergency department. The patient will pursue further outpatient evaluation with her primary care provider or other designated consulting physician as outlined in the discharge instructions. Patient and/or caregivers are agreeable to this plan of care and follow-up instructions have been explained in detail. The patient and/or caregivers have received these instructions in written format and expressed understanding of these discharge instructions. The patient and her caregivers are aware that if any significant change in condition or worsening of symptoms should prompt him to immediately return to this of the closest emergency department. If an emergent department is not readily available I would encourage him to call 911. Christina Disclaimer Christina Disclaimer This electronic medical record was generated, in whole or in part, using a voice recognition dictation system. Departure Departure Impression: Primary Impression: Abdominal cramping Additional Impression: Renal insufficiency Disposition: HOME, SELF-CARE (at 1526) Condition: STABLE Referrals: NO PCP (PCP) Patient Instructions: Abdominal Pain (Nonspecific) Additional Instructions: Drink plenty of liquids Follow-up with your primary care physician in 3-5 days Return to ER if not getting better Take liquid diet for the next 24 hours Thank you for visiting [facility]. We appreciate you trusting us with your care. If any additional problems come up don't hesitate to return to visit us. Please follow up with your primary care provider so they can plan additional care if needed and know about the problem that you had. If symptoms worsen come back to the Emergency Department. Any concerning symptoms that start such as chest pain, shortness of air, weakness or numbness on one side of the body, running high fevers or any other concerning symptoms return to the ER. Scripts [Percogesic] No Conflict Check 1 TAB PO QID PRN for PAIN, #10 Prov: ESME MICHEL MD 09/09/19 Problem Qualifiers ESME MICHEL MD Sep 09, 2019 14:04
--- NOTE | 2019-09-09 14:07 | RAD ---
CT Abdomen and Pelvis without contrast History: Crampy abdominal pain for 4 days Technique: Noncontrast CT imaging was performed of the abdomen and pelvis. Multiplanar images are reviewed. Exposure: One or more of the following individualized dose reduction techniques were utilized for this examination: 1. Automated exposure control 2. Adjustment of the mA and/or kV according to patient size 3. Use of iterative reconstruction technique. Comparison: September 11, 2009 Findings: There are trace dependent pleural effusions at the lung bases bilaterally. There are 2 new hypodense foci of the lateral left lobe of the liver, largest about 1.4 cm and the other about 0.9 cm there is also new small focus of hypodensity of the right lobe of the liver about 0.5 cm. Density characteristics are suggestive of cysts, 8 Hounsfield units of the dominant focus of the left lobe. There is no adrenal nodularity. Gallbladder is present without obvious intraluminal abnormality by CT. No obvious focal abnormality is identified of the spleen or pancreas allowing for noncontrast technique. There is no hydronephrosis or calculus of either kidney. No ureteral calculus is identified on either side. There is increased fat in the inguinal canals right greater than left without internal bowel. Normal caliber appendix is visualized without adjacent inflammatory-type change. Accurate evaluation of bowel is limited without oral contrast. Bowel is not significantly dilated. There is no free fluid or free air. There is vacuum disc disease at L5-S1. There is very mild grade 1 anterior spondylolisthesis at L4-5 at which there is facet degenerative change. There is degree of narrowing of the far left lateral recess at L4-5 from posteriorly by facet. There is umbilical fascial defect with segment of nondilated small bowel coursing into this region. Impression: 1. There is no urolithiasis or hydronephrosis. There is no CT evidence of acute appendicitis. 2. There are trace dependent pleural effusions at the lung bases bilaterally. 3. There are a few small hypodense foci of the liver which are new since the previous 2009 exam although density characteristics more suggestive of cysts. 4. There is L5-S1 degenerative disc disease, grade 1 anterior spondylolisthesis at L4-5 at which there is facet degenerative change, and degree of narrowing of the posterior left L4-5 lateral recess. 5. There is small bowel containing umbilical hernia, also some increased fat in the inguinal canals greater on the right, no internal bowel. Electronically signed by: Keith Ashton MD (09/09/2019 2:04 PM) [facility]
[2019-09-09 14:10] LABS: BACTERIA,URINE 0 /HPF (0-FEW); RBC,URINE 0 /HPF (0-2); WBC,URINE RARE /HPF (0-4)
[2019-09-09 14:12] LABS: BASO % 0 % (0-3); EOS # 0.1 x10^3/uL (0.0-0.7); EOS % 2 % (0-3); HEMATOCRIT 45.5 % (39.0-53.0); HEMOGLOBIN 15.3 g/dL (13.0-17.5); LYMPH # 2.5 x10^3/uL (1.0-4.8); LYMPH % 36 % (24-48); MEAN CORPUSCULAR HEMOGLOBIN 30 pg (25-35); MEAN CORPUSCULAR HGB CONC 34 g/dL (31-37); MEAN CORPUSCULAR VOLUME 89 fL (79-100); MONO # 0.7 x10^3/uL (0.0-1.1); MONO % 10 % (0-9); NEUT # 3.6 x10^3/uL (1.8-7.7); NEUT % 52 % (31-73); PLATELET COUNT 170 x10^3/uL (140-400); RED BLOOD COUNT 5.11 x10^6/uL (4.30-5.70); RED CELL DISTRIBUTION WIDTH 14.6 % (11.5-14.5); WHITE BLOOD COUNT 6.9 x10^3/uL (4.0-11.0)
[2019-09-09 14:18] LABS: CALCIUM 7.9 mg/dL (8.5-10.1); CREATININE 1.6 mg/dL (0.7-1.3); GFR 54.6; POTASSIUM 4.3 mmol/L (3.5-5.1)
[2019-09-09 14:24] LABS: ALBUMIN 3.1 g/dL (3.4-5.0); TOTAL BILIRUBIN 0.6 mg/dL (0.2-1.0); TOTAL PROTEIN 6.2 g/dL (6.4-8.2)
[2019-09-09 14:54] VITALS: BP 159/87
[2019-09-09] MEDS ORDERED: Percogesic PO (15:32)
== END 2019-09-09 15:43 | disposition home or self-care (01) ==
LOC: ER 12:49
DX: N28.9 Disorder of kidney and ureter, unspecified (principal); R10.30 Lower abdominal pain, unspecified; R63.0 Anorexia; I10 Essential (primary) hypertension
CPT/HCPCS: 36415; 74176; 80053; 80307; 81001; 83690; 85025; 99285; J7030

== ENCOUNTER 2020-03-04 08:02 | Emergency (ER) | payer SELFPAY ==
[~2020-03-04] VITALS: Ht 177.8 cm; Wt 100.0 kg
[~2020-03-04 08:02] MED LIST changes: +Percogesic PO
[2020-03-04 08:38] VITALS: BP 167/103
--- NOTE | 2020-03-04 09:38 | PHYS DOC ---
Past Medical History Past Medical History: Hypertension Past Surgical History: No Surgical History Smoking Status: Never Smoker Alcohol Use: None Drug Use: None General Adult EDM: Chief Complaint: SORE THROAT HPI: HPI: Patient is a 54-year-old male who presents with a sore throat. Is been going on since last . States it started after he ate some spicy [place] food. He did have strep throat several months ago. He has not had any fever chills or sweats. [] Review of Systems: Review of Systems: Constitutional: Denies fever or chills. [] Eyes: Denies change in visual acuity. [] HENT: Per HPI [] Respiratory: Denies cough or shortness of breath. [] Cardiovascular: Denies chest pain or edema. [] GI: Denies abdominal pain, nausea, vomiting, bloody stools or diarrhea. [] : Denies dysuria. [] Musculoskeletal: Denies back pain or joint pain. [] Integument: Denies rash. [] Neurologic: Denies headache, focal weakness or sensory changes. [] Endocrine: Denies polyuria or polydipsia. [] Lymphatic: Denies swollen glands. [] Psychiatric: Denies depression or anxiety. [] Heart Score: Risk Factors: Risk Factors: DM, Current or recent (<one month) smoker, HTN, HLP, family history of CAD, obesity. Risk Scores: Score 0 - 3: 2.5% MACE over next 6 weeks - Discharge Home Score 4 - 6: 20.3% MACE over next 6 weeks - Admit for Clinical Observation Score 7 - 10: 72.7% MACE over next 6 weeks - Early Invasive Strategies Allergies: Allergies: Allergies Coded Allergies Type Severity Reaction Last Updated Verified No Known Drug Allergies 03/04/20 No Physical Exam: PE: Constitutional: Well developed, well nourished, no acute distress, non-toxic appearance. [] HENT: Posterior pharynx is erythematous without exudate. [] Eyes: PERRLA, EOMI, conjunctiva normal, no discharge. [] Neck: Normal range of motion, no tenderness, supple, no stridor. [] Cardiovascular:Heart rate regular rhythm, no murmur [] Lungs & Thorax: Bilateral breath sounds clear to auscultation [] Abdomen: Bowel sounds normal, soft, no tenderness, no masses, no pulsatile masses. [] Skin: Warm, dry, no erythema, no rash. [] Back: No tenderness, no CVA tenderness. [] Extremities: No tenderness, no cyanosis, no clubbing, ROM intact, no edema. [] Neurologic: Alert and oriented X 3, normal motor function, normal sensory function, no focal deficits noted. [] Psychologic: Affect normal, judgement normal, mood normal. [] Current Patient Data: Vital Signs: Vital Signs Date Time Temp Pulse Resp B/P (MAP) Pulse Ox O2 Delivery O2 Flow Rate FiO2 03/04/20 08:38 98.0 68 14 167/103 (124) 97 Room Air 98.0 EKG: EKG: [] Radiology/Procedures: Radiology/Procedures: [] Course & Med Decision Making: Course & Med Decision Making Pertinent Labs and Imaging studies reviewed. (See chart for details) [] Dragon Disclaimer: Dragon Disclaimer: This electronic medical record was generated, in whole or in part, using a voice recognition dictation system. Departure Departure Impression: Primary Impression: Sore throat (viral) Disposition: 01 HOME, SELF-CARE Condition: STABLE Referrals: NO PCP (PCP) Patient Instructions: Sore Throat Additional Instructions: Return to the emergency department any new or concerning symptoms Justicifation of Admission Dx: Justifications for Admission: Justification of Admission Dx: No BYRON PATTON DO Mar 04, 2020 09:38
== END 2020-03-04 09:50 | disposition home or self-care (01) ==
LOC: ER 08:02
DX: J02.8 Acute pharyngitis due to other specified organisms (principal); L53.9 Erythematous condition, unspecified; I10 Essential (primary) hypertension
CPT/HCPCS: 87070; 87880; 99283

== ENCOUNTER 2020-05-30 08:16 | Emergency (ER) | payer SELFPAY ==
[~2020-05-30] VITALS: Ht 177.8 cm; Wt 100.0 kg
[2020-05-30] MEDS ORDERED: AMOX500T PO (08:30)
--- NOTE | 2020-05-30 08:30 | PHYS DOC ---
Past Medical History Past Medical History: Hypertension Past Surgical History: No Surgical History Smoking Status: Never Smoker Alcohol Use: None Drug Use: None General Adult EDM: Chief Complaint: SORE THROAT HPI: HPI: Patient is a 54 year old male present to ER for evaluation of sore throat started couple days ago. Patient says his daughter was diagnosed with strep throat a week ago. Patient denies any fever, no nausea vomiting, no headache, no neck pain. Patient denies any cough. Patient denies being exposed to anybody who tested positive for COVID-19. Review of Systems: Review of Systems: Constitutional: Denies fever or chills. [] Eyes: Denies change in visual acuity. [] HENT: Denies nasal congestion , positive for sore throat Respiratory: Denies cough or shortness of breath. [] Cardiovascular: Denies chest pain or edema. [] GI: Denies abdominal pain, nausea, vomiting, bloody stools or diarrhea. [] : Denies dysuria. [] Musculoskeletal: Denies back pain or joint pain. [] Integument: Denies rash. [] Neurologic: Denies headache, focal weakness or sensory changes. [] Endocrine: Denies polyuria or polydipsia. [] Lymphatic: Denies swollen glands. [] Psychiatric: Denies depression or anxiety. [] Heart Score: Risk Factors: Risk Factors: DM, Current or recent (<one month) smoker, HTN, HLP, family history of CAD, obesity. Risk Scores: Score 0 - 3: 2.5% MACE over next 6 weeks - Discharge Home Score 4 - 6: 20.3% MACE over next 6 weeks - Admit for Clinical Observation Score 7 - 10: 72.7% MACE over next 6 weeks - Early Invasive Strategies Allergies: Allergies: Allergies Coded Allergies Type Severity Reaction Last Updated Verified No Known Drug Allergies 03/04/20 No Physical Exam: PE: Constitutional: Well developed, well nourished, no acute distress, non-toxic appearance. [] HENT: Normocephalic, atraumatic, bilateral external ears normal, oropharynx moist and erythema, no oral exudates, nose normal. No trismus. Eyes: PERRLA, EOMI, conjunctiva normal, no discharge. [] Neck: Normal range of motion, no tenderness, supple, no stridor. [] Cardiovascular:Heart rate regular rhythm, no murmur [] Lungs & Thorax: Bilateral breath sounds clear to auscultation [] Abdomen: Bowel sounds normal, soft, no tenderness, no masses, no pulsatile masses. [] Skin: Warm, dry, no erythema, no rash. [] Back: No tenderness, no CVA tenderness. [] Extremities: No tenderness, no cyanosis, no clubbing, ROM intact, no edema. [] Neurologic: Alert and oriented X 3, normal motor function, normal sensory function, no focal deficits noted. [] Psychologic: Affect normal, judgement normal, mood normal. [] EKG: EKG: [] Radiology/Procedures: Radiology/Procedures: [] Course & Med Decision Making: Course & Med Decision Making Pertinent Labs and Imaging studies reviewed. (See chart for details) Dragon Disclaimer: Dragon Disclaimer: This electronic medical record was generated, in whole or in part, using a voice recognition dictation system. Departure Departure Impression: Primary Impression: ACUTE PHARYNGITIS, UNSPECIFIED Disposition: 01 DC HOME SELF CARE/HOMELESS Condition: STABLE Referrals: NO PCP (PCP) follow up with your doctor as needed Patient Instructions: Viral and Bacterial Pharyngitis Additional Instructions: Thank you for visiting our Emergency Department. We appreciate you trusting us with your care. If any additional problems come up don't hesitate to return to visit us. Please follow up with your primary care provider so they can plan ad ditional care if needed and know about the problem that you had. If symptoms worsen come back to the Emergency Department. Any concerning symptoms that start such as chest pain, shortness of air, weakness or numbness on one side of the body, running high fevers or any other concerning symptoms return to the ER. Scripts Amoxicillin (AMOXICILLIN) 500 Mg Tablet 500 MG PO TID for 10 Days, #30 TAB 0 Refills Prov: PEARL BONILLA DO 05/30/20 PEARL BONILLA DO May 30, 2020 08:30
[2020-05-30 08:50] VITALS: BP 185/117
== END 2020-05-30 08:50 | disposition home or self-care (01) ==
LOC: ER 08:16
DX: J02.9 Acute pharyngitis, unspecified (principal); L53.9 Erythematous condition, unspecified; I10 Essential (primary) hypertension
CPT/HCPCS: 99283